=== PATIENT | female | born 1970 | race Caucasian/White ===

== ENCOUNTER 2023-04-25 12:56 | Emergency (ER) | payer BC ==
[~2023-04-25] VITALS: Ht 160 cm; Wt 113.4 kg
[2023-04-25 12:58] VITALS: TEMP 98.7
[2023-04-25] MEDS ORDERED: ONDA4TAB6 PO (13:13)
[2023-04-25] MEDS ORDERED: METO1TAB32 PO (13:13)
[2023-04-25] MEDS ORDERED: LEXA1TAB2 PO (13:13)
[2023-04-25] MEDS ORDERED: NAPR500T6 PO (13:13)
[2023-04-25] MEDS ORDERED: VENTAER INH (13:13)
[2023-04-25] MEDS ORDERED: NOXI1TAB PO (13:13)
[2023-04-25] MEDS ORDERED: CALCTAB89 PO (13:13)
[2023-04-25] MEDS ORDERED: OMEP-173 PO (13:13)
[2023-04-25] MEDS ORDERED: PRAM1TAB7 PO (13:13)
[2023-04-25] MEDS ORDERED: SULF500T2 PO (13:13)
[2023-04-25] MEDS ORDERED: ACYC1TAB PO (13:13)
[2023-04-25] MEDS ORDERED: ACET325C5 PO (14:30)
[2023-04-25] MEDS ORDERED: NAPR-837 PO (14:30)
[2023-04-25] MEDS: NAPROXEN 250 MG TAB PO ONE (14:31)
[2023-04-25 14:49] VITALS: BP 115/70; O2SAT 99
== END 2023-04-25 14:50 | disposition home or self-care (01) ==
LOC: M ED 12:56
DX: S93.401A Sprain of unspecified ligament of right ankle, initial encounter (principal); S93.402A Sprain of unspecified ligament of left ankle, initial encounter; Y92.019 Unspecified place in single-family (private) house as the place of occurrence of the external cause; Y93.9 Activity, unspecified; Y99.9 Unspecified external cause status; W10.8XXA Fall (on) (from) other stairs and steps, initial encounter; I10 Essential (primary) hypertension; Z88.8 Allergy status to other drugs, medicaments and biological substances; Z79.1 Long term (current) use of non-steroidal anti-inflammatories (NSAID); Z79.899 Other long term (current) drug therapy; Z79.51 Long term (current) use of inhaled steroids